=== PATIENT | female | born 1990 | race Two or more races ===

== ENCOUNTER 2018-11-11 17:09 | Emergency (ER) | payer OTHER ==
[~2018-11-11] VITALS: Ht 160 cm; Wt 68.2 kg
[2018-11-11 17:49] LABS: BASO # 0.1 10^3/uL (0.0-0.2); BASO % 0.6 % (0.0-1.0); EOS # 0.1 10^3/uL (0.0-0.50); EOS % 1.4 % (0.0-3.0); HEMATOCRIT 39.8 % (36.0-47.0); LYMPH # 2.2 10^3/uL (1.5-6.5); LYMPH % 27.8 % (24.0-44.0); MEAN CORPUSCULAR HEMOGLOBIN 30.6 pg (27.0-33.0); MEAN CORPUSCULAR HGB CONC 32.7 g/dl (32.0-36.5); MEAN CORPUSCULAR VOLUME 93.6 fl (80.0-96.0); MONO # 0.6 10^3/uL (0.0-0.8); MONO % 7.6 % (0.0-5.0); NEUTROPHILS # 4.9 10^3/uL (1.8-7.7); NEUTROPHILS % 62.3 % (36.0-66.0); PLATELET COUNT, AUTOMATED 201 10^3/uL (150-450); RED BLOOD COUNT 4.25 10^6/uL (4.00-5.40); WHITE BLOOD COUNT 7.9 10^3/uL (4.0-10.0)
[2018-11-11 18:19] LABS: ALBUMIN 4.1 GM/DL (3.2-5.2); ALT/SGPT 23 U/L (12-78); BILIRUBIN,DIRECT 0.2 MG/DL (0.0-0.2); BILIRUBIN,TOTAL 0.5 MG/DL (0.2-1.0); BLOOD UREA NITROGEN 13 MG/DL (7-18); CALCIUM LEVEL 9.4 MG/DL (8.5-10.1); CARBON DIOXIDE LEVEL 29 MEQ/L (21-32); CHLORIDE LEVEL 108 MEQ/L (98-107); CREATININE FOR GFR 0.79 MG/DL (0.55-1.30); GLOMERULAR FILTRATION RATE > 60.0 (>60); GLUCOSE, FASTING 83 MG/DL (70-100); LIPASE 78 U/L (73-393); POTASSIUM SERUM 4.5 MEQ/L (3.5-5.1); SODIUM LEVEL 139 MEQ/L (136-145); TOTAL PROTEIN 7.6 GM/DL (6.4-8.2)
[2018-11-11 20:18] LABS: HCG, SERUM QUALITATIVE NEGATIVE (NEGATIVE)
--- NOTE | 2018-11-11 22:15 | REPVR ---
EXAM: US Pelvis Complete, Transabdominal and US Pelvis, Transvaginal EXAM DATE/TIME: 11/11/2018 9:27 PM CLINICAL HISTORY: 27 years old, female; Pelvic pain; Additional info: Pelvic cramping/pain, l>r TECHNIQUE: Imaging protocol: Real-time transabdominal and transvaginal pelvic ultrasound (complete) with image documentation. Transvaginal imaging was used for better evaluation of the endometrium and adnexa. COMPARISON: No relevant prior studies available. FINDINGS: Uterus/cervix: The uterus measures 8.0 x 3.6 x 4.4 cm. Endometrial stripe measures 8.7 mm. No gross abnormalities are identified. Right adnexa: Right ovary measures 3.8 x 2.0 x 2.7 cm and demonstrates dopplerable blood flow. Left adnexa: Left ovary measures 3.3 x 2.1 x 2.3 cm and demonstrates dopplerable blood flow. Free fluid: Small amount of free fluid is seen in the cul-de-sac. Bladder: Underdistended on transabdominal imaging and therefore cannot be adequately assessed. IMPRESSION: No gross abnormalities as visualized. Small amount of free fluid in the cul-de-sac is nonspecific but may be physiologic. Electronically signed by: Angel Miguel On 11/11/2018 22:15:27 PM
[2018-11-11 22:37] LABS: CHLAMYDIA DNA AMPLIFICATION NEGATIVE (NEGATIVE); GC DNA AMPLIFICATION NEGATIVE (NEGATIVE)
[2018-11-11 22:55] VITALS: BP 122/60
== END 2018-11-11 22:58 | disposition home or self-care (01) ==
LOC: M ED 17:09
DX: R10.2 Pelvic and perineal pain (principal); Z86.19 Personal history of other infectious and parasitic diseases; Z82.5 Family history of asthma and other chronic lower respiratory diseases

== ENCOUNTER 2019-03-05 23:16 | Emergency (ER) | payer OTHER ==
[~2019-03-05] VITALS: Ht 160 cm; Wt 77.8 kg
[2019-03-05] MEDS ORDERED: ACET-683 PO (23:22)
[2019-03-05] MEDS ORDERED: ROBICAP2 PO (23:22)
[2019-03-06 00:48] LABS: BASO % 0.4 % (0.0-1.0); EOS % 2.2 % (0.0-3.0); HEMATOCRIT 31.3 % (36.0-47.0); HEMOGLOBIN 10.4 g/dl (12.0-15.5); LYMPH # 2.5 10^3/uL (1.5-5.0); LYMPH % 24.3 % (24.0-44.0); MEAN CORPUSCULAR HEMOGLOBIN 31.5 pg (27.0-33.0); MEAN CORPUSCULAR HGB CONC 33.2 g/dl (32.0-36.5); MEAN CORPUSCULAR VOLUME 94.8 fl (80.0-96.0); MONO % 7.2 % (0.0-5.0); NEUTROPHILS # 6.5 10^3/uL (1.5-8.5); NEUTROPHILS % 64.5 % (36.0-66.0); PLATELET COUNT, AUTOMATED 182 10^3/uL (150-450); WHITE BLOOD COUNT 10.1 10^3/uL (4.0-10.0)
[2019-03-06 00:49] LABS: EOS # 0.2 10^3/uL (0.0-0.5); MONO # 0.7 10^3/uL (0.0-0.8)
[2019-03-06 00:55] LABS: APPEARANCE, URINE HAZY (CLEAR); BACTERIA, URINE AUTO NEGATIVE (NEGATIVE); BILIRUBIN, URINE AUTO NEGATIVE (NEGATIVE); BLOOD, URINE BLOOD NEGATIVE (NEGATIVE); COLOR, URINE YELLOW (YELLOW); GLUCOSE, URINE (UA) AUTO NEGATIVE (NEGATIVE); KETONE, URINE AUTO NEGATIVE (NEGATIVE); LEUKOCYTE ESTERASE, URINE AUTO NEGATIVE (NEGATIVE); MUCUS, URINE SMALL (NEGATIVE); NITRITE, URINE AUTO NEGATIVE (NEGATIVE); PROTEIN, URINE AUTO NEGATIVE (NEGATIVE); RBC, URINE AUTO 2 /HPF (0-3); SQUAMOUS EPITHELIAL CELL UR AU 5 /HPF (0-6); UROBILINOGEN, URINE AUTO 0.2 mg/dL (0.0-2.0); WBC, URINE AUTO 1 /HPF (0-3)
[2019-03-06 01:03] LABS: ALBUMIN 2.9 GM/DL (3.2-5.2); ALT/SGPT 41 U/L (12-78); BILIRUBIN,DIRECT < 0.1 MG/DL (0.0-0.2); BILIRUBIN,TOTAL < 0.1 MG/DL (0.2-1.0); BLOOD UREA NITROGEN 8 MG/DL (7-18); CALCIUM LEVEL 8.3 MG/DL (8.5-10.1); CARBON DIOXIDE LEVEL 22 MEQ/L (21-32); CHLORIDE LEVEL 110 MEQ/L (98-107); CREATININE FOR GFR 0.49 MG/DL (0.55-1.30); GLOMERULAR FILTRATION RATE > 60.0 (>60); GLUCOSE, FASTING 101 MG/DL (70-100); POTASSIUM SERUM 3.5 MEQ/L (3.5-5.1); SODIUM LEVEL 140 MEQ/L (136-145); TOTAL PROTEIN 6.3 GM/DL (6.4-8.2)
--- NOTE | 2019-03-06 01:22 | REPVR ---
PROCEDURE INFORMATION: Exam: US Retroperitoneal Limited, Kidneys Exam date and time: 03/05/2019 12:38 AM Age: 28 years old Clinical indication: Abdominal pain; Flank; Right; ; Additional Info: right flank pain TECHNIQUE: Imaging protocol: Real-time ultrasound of the retroperitoneum with image documentation. Examination was focused on the kidneys. COMPARISON: No relevant prior studies available. FINDINGS: Right kidney: Right kidney measures 11.9 cm in length. No right hydronephrosis. No masses. Left kidney: Left kidney measures 11.2 cm in length. No left hydronephrosis. No masses. IMPRESSION: Unremarkable renal ultrasound. Electronically signed by: Dori Mtz On 03/06/2019 01:21:35 AM
--- NOTE | 2019-03-06 01:24 | REPVR ---
PROCEDURE INFORMATION: Exam: US , Limited Exam date and time: 03/05/2019 12:38 AM Age: 28 years old Clinical indication: Pain; Other: RT FLANK; Gestational age or LMP: 19; ; Additional Info: right flank pain TECHNIQUE: Imaging protocol: Real-time ultrasound of the maternal uterus with image documentation. Exam focused on the clinical indication. COMPARISON: US PELVIC NON-OB COMPLETE 11/11/2018 9:12 PM FINDINGS: GESTATION: Gestation: Single live intrauterine gestation. Heart rate: heart rate measures 150 bpm. Presentation: Transverse head to the maternal left position. Placenta: Placenta is anterior. No evidence for abruption. Amniotic fluid: Amniotic fluid is adequate. BIOMETRY: Estimated gestational age: Estimated gestational age was not measured. MATERNAL: Cervix: Cervix measures 4.6 cm in length. Cervix is closed. Intraperitoneal: No free fluid. IMPRESSION: 1. Single live intrauterine gestation. 2. Recommend routine follow-up full anatomical survey at 19-20 weeks gestational age. Electronically signed by: Dori Mtz On 03/06/2019 01:23:49 AM
[2019-03-06 01:56] VITALS: BP 116/56
== END 2019-03-06 02:30 | disposition home or self-care (01) ==
LOC: M ED 23:16
DX: O99.89 Other specified diseases and conditions complicating pregnancy, childbirth and the puerperium (principal); M54.6 Pain in thoracic spine; Z3A.00 Weeks of gestation of pregnancy not specified

== ENCOUNTER 2019-04-24 14:51 | Emergency (ER) | payer OTHER ==
[~2019-04-24] VITALS: Ht 160 cm; Wt 84.0 kg
[~2019-04-24 14:51] MED LIST: ACET-683 PO; ROBICAP2 PO
[2019-04-24] MEDS ORDERED: AMOX500C PO (17:42)
[2019-04-24] MEDS ORDERED: CETI10CA2 PO (17:42)
[2019-04-24 17:53] VITALS: BP 127/62
== END 2019-04-24 17:55 | disposition home or self-care (01) ==
LOC: M ED 14:51
DX: O99.512 Diseases of the respiratory system complicating pregnancy, second trimester (principal); Z3A.26 26 weeks gestation of pregnancy

== ENCOUNTER 2019-07-10 17:32 | Outpatient (CLI) | payer OTHER ==
[~2019-07-10] VITALS: Ht 160 cm; Wt 89.0 kg
[~2019-07-10 17:32] MED LIST changes: +AMOX500C PO; +CETI10CA2 PO
[2019-07-10 18:04] VITALS: BP 129/72
--- NOTE | 2019-07-10 18:24 | IPNPDOC ---
Text Note Date of Service The patient was seen on 07/10/19. NOTE patient is a 28 yo G1 @37wks gestation presents with concern for abdominal pain x 30 minutes. reports constant pain on left side with wave of wosening pain. denies LOF/VB. +FM. vitals: normal nad abd: gravid, soft, nt, cephalic le: no yolie/erythema/tenderness FHT: 135/mod angeli/pos accel/no decel toco: irregular ctx CE: c/l/h, mid, medium a/p patient @ 37+1wks, not in labor. discussed labor pain. return precautions given. f/u with regularly scheduled exam. Le, DO VS,Fishbone, I+O VS, Fishbone, I+O Vital Signs Date Time Temp Pulse Resp B/P (MAP) Pulse Ox O2 Delivery O2 Flow Rate FiO2 07/10/19 18:04 97.8 87 16 129/72 (91) PRESTON QUINTERO DO Jul 10, 2019 18:24
== END 2019-07-10 18:35 | disposition home or self-care (01) ==
LOC: M LDO 17:32
PROVIDERS: ATTEND Obstetrics & Gynecology
DX: O26.893 Other specified pregnancy related conditions, third trimester (principal); R10.30 Lower abdominal pain, unspecified; Z3A.37 37 weeks gestation of pregnancy
CPT/HCPCS: 59025; G0378; G0463

== ENCOUNTER 2019-07-31 00:21 | Inpatient (IN) | payer OTHER ==
[2019-07-31] VITALS (39 sets, daily range): BP systolic 90–133; BP diastolic 52–78
[~2019-07-31] VITALS: Ht 160 cm; Wt 90.4 kg
[2019-07-31] MEDS ORDERED: LACTATED RINGER'S 1000 ML IV ONE (03:15)
[2019-07-31 04:08] LABS: HEMATOCRIT 35.8 % (36.0-47.0); HEMOGLOBIN 11.9 g/dl (12.0-15.5); MEAN CORPUSCULAR HEMOGLOBIN 31.2 pg (27.0-33.0); MEAN CORPUSCULAR HGB CONC 33.2 g/dl (32.0-36.5); PLATELET COUNT, AUTOMATED 132 10^3/uL (150-450); RED BLOOD COUNT 3.81 10^6/uL (4.00-5.40); WHITE BLOOD COUNT 12.6 10^3/uL (4.0-10.0)
[2019-07-31] MEDS: LR 1,000 ML IV SCH ×3 (04:53→20:22)
[2019-07-31] MEDS ORDERED: FENTANYL 2MCG/ML ROPIVACAINE 0.2% IN 0.9% NACL 100ML IVBAG As Ordered ONE (05:05)
[2019-07-31] MEDS ORDERED: diphenhydrAMINE 50MG/ML VIAL (J1200) IV PRN ×2 (05:09→19:05)
[2019-07-31] MEDS ORDERED: ONDANSETRON 4MG/2ML VIAL IV PRN ×3 (05:09→20:15)
[2019-07-31] MEDS ORDERED: EPIDURAL COMMENT XX SCH (05:09)
[2019-07-31] MEDS ORDERED: NALOXONE INJ 0.4MG/1ML VIAL (J2310 PER 1MG) IV PRN ×3 (05:09→19:05)
[2019-07-31] MEDS ORDERED: EPIDURAL/PCA KEYS XX PRN (05:09)
[2019-07-31] MEDS ORDERED: LACTATED RINGER'S 1000 ML IV PRN (05:09)
[2019-07-31] MEDS ORDERED: REFRIGERATOR IV KEYS XX PRN (05:09)
[2019-07-31] MEDS: ePHEDrine SULFATE 25 MG/5 ML(5MG/ML) SYRINGE IV PRN ×3 (07:27→12:44)
[2019-07-31] MEDS: FENTANYL/ROPIVACAINE/NACL BAG 100 ML EPIDURAL SCH ×2 (07:46→14:32)
--- NOTE | 2019-07-31 09:22 | IPNPDOC ---
Obstetrical Progress Note Date of Service July 31, 2019 Subjective [place] of Care Received report from Dr. Avery during board sign out of Pamela, a 28yo at 40+1 weeks gestation, admitted to [facility] this morning for early labor. She was AROMd at 0443 and received an epidural at 0538. She denies feeling any pain and is very comfortable at this time. Her spouse is at the bedside at this time. She is GBS Negative; Blood Type is O Negative. complicated by anemia, overweight and excessive weight gain. Objective O: VSS, afebrile, normotensive. She did have periods of hypotension after epidural and received ephedrine x2. VE deferred at this time as her last exam was around 0730; was 4-5-C/-2 FHR 150s, minimal variability, no 15x15 accels, early decels. There have been some periods of moderate variability; few periods of absent variability that resolves within 60 seconds or less; intermittent late decelerations also noted. Pt has previously received an LR bolus and repositioned to which the fetus responds well. Will continue interventions as necessary. CTX by TOCO: q 2-4 minutes Vital Signs Date Time Temp Pulse Resp B/P (MAP) Pulse Ox O2 Delivery O2 Flow Rate FiO2 07/31/19 08:07 84 16 107/56 (73) 07/31/19 07:32 98.9 Assessment Heart Rate Tracing: Category II Sterile Vaginal Examination Postion/Presentation: Cephalic presentation Assessment and Plan Group B Streptococcus: Negative Anticipate: Vaginal Delivery Additional Comments A: 28yo at 40+1wks, labor, Category II FHT with interventions. P: CEFM x2 Close maternal/ monitoring resuscitative interventions as necessary to resolve Category II tracing Consult with OB as indicated Consider augmentation with pitocin if no progress at next exam Safe to proceed Anticipate DILIP GRANDE CNM July 31, 2019 09:22
[2019-07-31] MEDS ORDERED: OXYTOCIN DRIP 30 UNITS in IV 1 EA IV SCH ×2 (10:45→19:41)
--- NOTE | 2019-07-31 13:17 | IPNPDOC ---
Obstetrical Progress Note Date of Service July 31, 2019 Subjective Labor Progress Note Pamela is a 28yo at 40+4wks admitted this morning in early labor with AROM (x8 hours now), clear fluid. She is still very comfortable with epidural in place, intermittent rectal pressure. She has been repositioned throughout her admission, with and without the peanut ball; she did receive O2 from [id number], at which time the fetus responded with accels, but variability remained minimal. Because of her persistent Category II FHT with minimal variability and some periods that appeared to be absent, Internal monitors were placed (FSE and IUPC) for a more reliable tracing. Objective O: VSS, afebrile, normotensive FHR: 145, minimal variability (despite ongoing interventions), + accels, no decels noted (there have been intermittent lates (none noted over the past 30 minutes). CTX by IUPC: q 2-6 minutes; MVUs 120, not adequate. VE at 1205: 5.5/100/-2 head palpated to be at ROP with caput present. Vital Signs Date Time Temp Pulse Resp B/P (MAP) Pulse Ox O2 Delivery O2 Flow Rate FiO2 07/31/19 12:42 93 97/56 (70) 07/31/19 12:41 16 07/31/19 11:41 98.8 Assessment Heart Rate Tracing: Category II Sterile Vaginal Examination Cervical Position: Middle Postion/Presentation: Cephalic presentation Assessment and Plan Anticipate: Vaginal Delivery Additional Comments A: 28yo at 40+4wks with persistent category II FHT, entering into active labor. Interventions continuously ongoing. Patient status and tracing reviewed with Dr. Angel P: CEFM x2 Continue repositioning, to include hands/knees 500mL LR bolus Pitocin start when tracing is Category I Close maternal/ monitoring Safe to proceed with labor at this time Consult with OB as indicated Anticipate ; C/S if become appropriate DILIP RODRIGUEZ CNM July 31, 2019 13:17
[2019-07-31] MEDS ORDERED: LR 1,000 ML IV SCH ×2 (15:00→20:15)
[2019-07-31] MEDS ORDERED: ePHEDrine SULFATE 25 MG/5 ML(5MG/ML) SYRINGE IV ONE (15:00)
[2019-07-31] MEDS ORDERED: BICITRA 30ML SOLN UDC PO ONE (17:30)
[2019-07-31] MEDS ORDERED: ceFAZolin SOD 2 GM in IV 1 EA IV ONE (17:30)
[2019-07-31] MEDS ORDERED: ceFAZolin 2 GM/D5W 50 ML IV BAG (J0690 PER 500MG) As Ordered ONE (17:32)
[2019-07-31] MEDS ORDERED: BICITRA 30ML SOLN UDC As Ordered ONE (17:33)
--- NOTE | 2019-07-31 17:39 | IPNPDOC ---
Text Note Date of Service The patient was seen on 07/31/19. NOTE Intrapartum Note, decision for Pamela is a 28yo at 40w1d admitted early this morning for latent labor. She had AROM at 0443 and received an epidural at 0538. She had IUPC and FSE placed in the afternoon for slow progression. She was not initiated on pitocin for p ersistent Cat II FHRT. She is currently comfortable with epidural. She has been 6cm since at least noon today (by IWONA Finch's assessment). Vitals wnl, afebrile SCE: /-2 Cat II FHRT with +accels, minimal variability, occasional non-persistent late decels Espino: ctx q4-6min I discussed with Pamela and her that at this point, she has arrest of dilation with inability to augment in the setting of persistent Cat II FHRT and my recommendation is for PLTCS. The couple was given time to discuss between themselves and agree to proceed with PLTCS. Consent form for PLTCS and blood transfusion discussed to include all r/b/a and consent forms signed by patient and me. Bicitra Anceph 2g IV pre-op (since patient has known allergy- hives- to clarithromycin, will not given azithromycin) Anesthesia notified and nursing team aware, will proceed to OR when team is ready Dr. Iris Angel MD VS,Marko, I+O VS, Marko I+O Laboratory Tests 07/31/19 03:32 Vital Signs Date Time Temp Pulse Resp B/P (MAP) Pulse Ox O2 Delivery O2 Flow Rate FiO2 07/31/19 15:52 98.8 96 16 115/56 (75) Iris Angel MD July 31, 2019 17:39
[2019-07-31] MEDS ORDERED: LIDOCAINE 2% W/EPIN INJ 20ML **PRES FREE As Ordered ONE (17:53)
[2019-07-31] MEDS ORDERED: OXYTOCIN 30 UNITS IN 0.9% NaCl 500ML IV BAG (J2590) As Ordered ONE ×2 (17:55→19:33)
[2019-07-31] MEDS ORDERED: ONDANSETRON 4MG/2ML VIAL As Ordered ONE (18:34)
[2019-07-31] MEDS ORDERED: KETOROLAC 60 MG/2 ML VIAL As Ordered ONE (18:34)
[2019-07-31 18:36] LABS: CORD GAS ABE A -2.8; CORD GAS HCO3 A 26.1 MEQ/L; CORD GAS O2 SAT A 23.9 %; CORD GAS PCO2 A 62.2 mmHg; CORD GAS PH A 7.24 UNITS; CORD GAS PO2 A 16.5 mmHg; CORD GAS SBC A 20.4 MEQ/L
[2019-07-31 18:37] LABS: CORD GAS ABE V -4.1; CORD GAS HCO3 V 21.5 MEQ/L; CORD GAS O2 SAT V 70.4 %; CORD GAS PCO2 V 41.6 mmHg; CORD GAS PH V 7.332 UNITS; CORD GAS PO2 V 30.4 mmHg; CORD GAS SBC V 20.4 MEQ/L; CORD GAS TCO2 V 22.8 MEQ/L
[2019-07-31] MEDS ORDERED: fentaNYL 100 MCG/2 ML INJECTION (J3010) As Ordered ONE (18:51)
[2019-07-31] MEDS ORDERED: MORPHINE PRES-FREE INJ 10 MG/10 ML VIAL (J2274) As Ordered ONE (18:58)
[2019-07-31] MEDS ORDERED: NALBUPHINE HCL 10 MG/ML AMP (J2300) IV PRN (19:05)
[2019-07-31] MEDS ORDERED: METOCLOPRAMIDE INJ 10MG/2ML VIAL (J2765 PER 1) IV PRN ×2 (19:05→20:15)
--- NOTE | 2019-07-31 19:39 | DNPDOC ---
[facility] Delivery Note Delivery Note DATE OF DELIVERY: 31 Jul 2019 PREDELIVERY DIAGNOSIS: 40w1d gestation and labor Arrest of dilation at 6cm Inability to augment secondary to persistent Cat II FHRT POST DELIVERY DIAGNOSIS: Same as above Delivered PROCEDURE: primary low transverse section BRICK TENDER: Dr. Iris Angel MD ANESTHESIA: epidural ESTIMATED BLOOD LOSS: 700 mL. FINDINGS: 7 pound 3 ounce (3250g) male , Score 8/9, nuchal cord times 1 DELIVERY SUMMARY: Pamela is a 28yo [id number] s/p uncomplicated PLTCS at 40w1d on 31 Jul 2019 after presenting in early labor and arresting at 6cm with inability to augment secondary to persistent Cat II FHRT. Please see dictated operative report for further details. MD Jeanne Sorensen Katrina D MD July 31, 2019 19:39
[2019-07-31] MEDS ORDERED: MEASLES,MUMPS,RUBELLA VACCINE INJ (MMR-II) (90707) SC SCH (19:45)
[2019-07-31] MEDS ORDERED: PERCOCET 5MG/325MG TAB PO PRN ×2 (19:45→20:15)
[2019-07-31] MEDS ORDERED: RHOGAM 300 MCG (1500 IU) INJ (J2790) IM SCH (19:45)
[2019-07-31] MEDS ORDERED: fentaNYL 100 MCG/2 ML INJECTION (J3010) IV PRN (20:15)
[2019-07-31] MEDS: DOCUSATE SODIUM 100 MG CAP PO SCH (21:00)
--- NOTE | 2019-07-31 23:31 | HPE ---
DATE OF ADMISSION: 07/31/2019 A 28-year-old 1, last menstrual period (LMP) 10/23/2018, estimated date of confinement (EDC) 07/30/2019 at 40 and 1 week's of gestation, having contractions and some show. Risk factors: She is Rh negative and she has anemia. Labs are O negative, HIV negative, hepatitis negative, RPR negative, rubella immune. Varicella immune. Pap normal. Gonorrhea and chlamydia are negative. 1-hour glucose 115. GBS is negative. Blood pressure is 129/72, respirations 16, pulse 87, temperature is 97.8. On examination, she appears distressed, has a category one strip. Symphysis fundus height is 40, vertex presenting, posterior 2 cm, -3 station, 60%. There is some show present. Contractions are moderate intensity, but still considerably far apart. Our plan of management is to hydrate the patient, reassess her in 2 hours as to whether she gets to stay and continue labor here. Presently no risk factors to continue monitoring.
--- NOTE | 2019-07-31 23:42 | IPN ---
DATE: 07/31/2019 Reassessment. This lady was seen in triage as an outpatient, complaining of contractions and moderate show. She is at 40 and 1 weeks of gestation. She was -3, 60%, posterior. Cervix was soft. Category one strip after hydration. Reevaluation 2 hours later, cervix is anterior, she is a good 2 cm. She is about 80% effaced, -3 station, bulging membranes can be felt. She has a moderate amount of show. Contractions are 7 minutes apart, but the intensity for her is quite palpable, and she has been doing this for the last 24-48 hours. Her urine was 1.020, trace of leukocytes, trace of protein, 250, blood. Our plan of management is to hydrate her, offer her pain management and artificial rupture of membranes after pain management in place, and at the present time with a category one strip and normotensive it is safe to proceed.
[2019-08-01] VITALS (7 sets, daily range): BP systolic 95–121; BP diastolic 47–60
[2019-08-01] MEDS: KETOROLAC 30 MG/ML 1ML VIAL IV SCH ×3 (00:10→11:52)
[2019-08-01] MEDS: LR 1,000 ML IV SCH (03:03)
[2019-08-01 07:37] LABS: HEMOGLOBIN 7.8 g/dl (12.0-15.5); MEAN CORPUSCULAR HEMOGLOBIN 31.5 pg (27.0-33.0); MEAN CORPUSCULAR HGB CONC 32.5 g/dl (32.0-36.5); MEAN CORPUSCULAR VOLUME 96.8 fl (80.0-96.0); RED BLOOD COUNT 2.48 10^6/uL (4.00-5.40); WHITE BLOOD COUNT 10.9 10^3/uL (4.0-10.0)
[2019-08-01 07:38] LABS: PLATELET COUNT, AUTOMATED 97 10^3/uL (150-450)
--- NOTE | 2019-08-01 08:56 | IPNPDOC ---
Progress Note Date of Service: August 01, 2019 Day#: 1 Progress Note PPD 1 SUBJECT: Pamela is a 28yo [id number] s/p uncomplicated PLTCS at 40w1d on 31 Jul 2019 after presenting in early labor and arresting at 6cm with inability to augment secondary to persistent Cat II FHRT, doing well day # 1. She has been ambulating, thompson removed recently and has not voided yet. Drinking ple nty of fluids, has not yet tried food but has an appetite. Breast feeding without issue. Reports lochia is like a normal period. Pain well controlled with toradol/percocet. No f/c/n/v/CP/SOB. OBJECTIVE: VITAL SIGNS: Within normal limits, afebrile. Alert and oriented times three. Abdomen: Fundus firm at U-2. Soft, appropriately tender to palpation without rebound/guarding. Pfannensteil incision covered by dry clean dressing. Extremities: no pain with palpation of calves Labs: pre-op H/H: 11.9/35.8 post-op H/H: 7.8/24 ASSESSMENT: Pamela is a 28yo [id number] s/p uncomplicated PLTCS at 40w1d on 31 Jul 2019 after presenting in early labor and arresting at 6cm with inability to augment secondary to persistent Cat II FHRT, doing well day # 1. Vitals within normal limits, afebrile, hemodynamically stable with no evidence of infection. PLAN: 1. Routine /post-op care 2. Toradol then Motrin for pain as well as prn percocet. 3. Encourage breast feeding and ambulation and use of IS 4. Due to void 4 hours after thompson removal 5. Regular diet 6. Ok to shower tonight and remove outer bandage, keep steri strips in place for [address] Iris Angel MD VS, I&O, 24H, [facility] Vital Signs/I&O Vital Signs Date Time Temp Pulse Resp B/P (MAP) Pulse Ox O2 Delivery O2 Flow Rate FiO2 08/01/19 07:14 100.0 102 18 121/60 (80) 98 Room Air I&O- Last 24 Hours up to 6 AM 08/01/19 06:00 Intake Total 4542 ml Output Total 2025 ml Balance 2517 ml Laboratory Data 24H LABS Laboratory Tests 2 07/31/19 18:28: Cord Arterial Blood pH 7.240, Cord Arterial Blood PCO2 62.2, Cord Arterial Blood PO2 16.5, Cord Arterial Blood HCO3 26.1, Cord Arterial Blood Total CO2 28.0, Cord Arterial Blood Base Excess -2.8, Cord Arterial Base Excess (Standard 20.4, Cord Arterial Bld Oxygen Saturation 23.9, Cord Venous Blood pH 7.332, Cord Sohan ous Blood PCO2 41.6, Cord Venous Blood PO2 30.4, Cord Venous Blood HCO3 21.5, Cord Venous Blood Total CO2 22.8, Cord Venous Base Excess (Actual) -4.1, Cord Venous Base Excess (Standard) 20.4, Cord Venous Blood Oxygen Saturation 70.4 08/01/19 07:01: Nucleated Red Blood Cells % (auto) 0.0, Immature Platelet Fraction 6.4 CBC/BMP Laboratory Tests 08/01/19 07:01 Iris Angel MD August 01, 2019 08:56
[2019-08-01] MEDS: PRENATAL VITAMINS CHEWABLE TABLET PO SCH (09:18)
[2019-08-01] MEDS: DOCUSATE SODIUM 100 MG CAP PO SCH ×2 (09:18→20:18)
--- NOTE | 2019-08-01 09:55 | IPN ---
DATE: 08/01/2019 This patient requested circumcision of her male . After discussing risks and benefits of circumcision, medical and nonmedical indications, penile block and aftercare, expressed understanding of penile block aftercare and bleeding. Signed the consent form. All questions were answered. 20-minute discussion. We await clearance by the hot repairman.
[2019-08-01] MEDS: IBUPROFEN 800 MG TAB PO SCH (20:18)
[2019-08-01] MEDS: PERCOCET 5MG/325MG TAB PO PRN (22:07)
[2019-08-02 02:00] VITALS: BP 123/58
[2019-08-02] MEDS: IBUPROFEN 800 MG TAB PO SCH ×2 (04:13→12:00)
[2019-08-02 06:00] VITALS: BP 110/59
[2019-08-02] MEDS ORDERED: IBUP80TA PO (07:31)
[2019-08-02] MEDS ORDERED: DOCU100C16 PO (07:31)
[2019-08-02] MEDS ORDERED: PERCOCET PO (07:31)
[2019-08-02] MEDS ORDERED: PRENCHW PO (07:31)
[2019-08-02] MEDS: DOCUSATE SODIUM 100 MG CAP PO SCH (08:21)
[2019-08-02] MEDS: PRENATAL VITAMINS CHEWABLE TABLET PO SCH (08:21)
[2019-08-02] MEDS: PERCOCET 5MG/325MG TAB PO PRN (08:22)
--- NOTE | 2019-08-03 18:14 | DSES ---
DATE OF ADMISSION: 07/31/2019 DATE OF DISCHARGE: 08/02/2019 This lady is a 28-year-old 1, now para 1, admitted in labor with contractions at 40 and one weeks of gestation. She had a primary section because of arrest of dilatation of a male infant, 7 pounds, 3 ounces, 3250 grams, scores of 8 and 9 at one and five minutes respectively. Arterial pH 7.24, base excess -2.8, venous pH 7.33, base excess -4.1. Her admitting hemoglobin was 11.9, hematocrit 35.8 and platelets were 132. Her discharge hemoglobin 7.8, hematocrit 24.0, and platelets are 97. She is asymptomatic. VITAL SIGNS: On discharge today, blood pressure is 110/59, respirations 17, pulse 86 and temperature is 98.3. We discussed phlebitis, cystitis, mastitis, endometritis and cellulitis, diet, exercise, pain management, perineal, breast and wound care. On examination, she is normocephalic, atraumatic. Neck: Full range of motion. Pupils equal and reactive to light. Distal pulses are symmetric. No evidence of deep vein thrombosis (DVT), pulmonary embolism (PE) or superficial phlebitis. Chest is clear bilaterally to bases. No wheezes or rhonchi. No costovertebral angle (CVA) tenderness. Abdomen is soft. Four quadrant bowel sounds are noted. Uterus is 2 below. Lochia is moderate. Incision is clean and dry. No rashes, lesions or pruritus. No arthralgia or myalgia. No complaint of joint pain. No complaint of cough, wheeze, shortness of breath or dyspnea on exertion. No nausea, vomiting, diarrhea or constipation. No urgency or frequency. In summary, we have a term gestation, delivered by primary section, a live male infant. Plans are to pickup her medications at [facility], two-week incision check either virtual or an actual visit, and a six-week check. At which time, control will be discussed. In summary, term gestation, live male , discharged, improved. All questions were answered. A 30-minute discussion.
--- NOTE | 2019-08-05 12:38 | RO ---
DATE OF OPERATION: 07/31/2019 STAFF SURGEON: Iris Angel MD SOFT TOP INSTALLER: CLINICAL SERVICE: Obstetrics. INDICATION FOR OPERATION: Pamela is a 28-year-old, G1, now P1-0-0-1, who was admitted at 40 weeks 1 day in latent labor. She progressed with rupture of membranes to the point of 6 cm but progressed no further over greater than 5 hours, and she had an inability to augment related to persistent category II heart rate tracing. PREOPERATIVE DIAGNOSES: 40-week 1 day, labor, arrest of dilation with inability to augment secondary to persistent category II heart rate tracing. POSTOPERATIVE DIAGNOSES: 40-week 1 day, labor, arrest of dilation with inability to augment secondary to persistent category II heart rate tracing. MATERIAL FORWARDED TO THE LABORATORY FOR EXAMINATION: Cord gases, pH arterial 7.24, base excess negative 2.8, pH venous 7.332, base excess negative 4.1. DESCRIPTION OF FINDINGS: Male in cephalic presentation, scores 8 and 9, 7 pounds 3 ounces or 3250 grams, normal-appearing ovaries, fallopian tubes, and uterus. INFECTION CLASSIFICATION: II. ESTIMATED BLOOD LOSS: 700 mL. INTRAVENOUS (IV) FLUIDS: 2100 mL lactated Ringer. URINE OUTPUT: 200 mL. OPERATION PERFORMED: Primary low transverse section. DESCRIPTION OF OPERATION: After obtaining informed consent, the patient was taken to the operating room. Doptones in the operating room (OR) were 160s. Nguyen catheter and bilateral sequential compression devices were already in place secondary to the fact that she had an epidural. She was prepped and draped in normal sterile fashion in the dorsal supine position with a left lateral tilt. Time-out was performed to confirm patient name, date of , procedure, and indication. The surgical team and nursing team were in agreement with anesthesia. Epidural anesthesia was found to be adequate. Using an Allis clamp, a Pfannenstiel skin incision was made with a scalpel and carried through to the underlying layer of fascia. Notably, she received 2 grams of Ancef prophylactically IV. The fascia was incised in the midline, and the incision was extended laterally with Morin scissors. Superior and inferior aspects of the fascial incision were grasped with Kye clamps, elevated, and the underlying rectus muscles were dissected off bluntly and sharply. Peritoneum was entered digitally. The rectus muscles were in the midline. Peritoneal incision was extended superiorly and inferiorly with good visualization of the bladder. Bladder blade was inserted, and vesicouterine peritoneum was identified, grasped with pickups, and entered sharply with Metzenbaum scissors. The incision was extended laterally, and the bladder flap was created digitally. Bladder blade was then reinserted, and the lower uterine segment was scored in a transverse fashion with a scalpel. The uterus was entered bluntly, and the incision was extended with traction. Bladder blade was removed, and the infant's head was elevated to the level of the incision. There was one nuchal cord that was reduced at the time of delivery. Fundal pressure was applied. Head was delivered atraumatically in the occipitoanterior (OA) position. Anterior shoulder, posterior shoulder, and corpus were delivered without difficulty. Nose and mouth of the infant were suctioned with bulb suction. The cord was clamped times two and cut. Infant was handed off to the awaiting nursing team. Cord gases were obtained, as well as for maternal blood type of O negative. Placenta was removed with uterine massage and traction on the cord, and the uterus was exteriorized and cleared of all clot and debris. Uterine incision was repaired with 0 Vicryl suture in a running locking fashion. A second layer 0 Monocryl was used to close the hysterotomy incision in imbricating fashion. Uterine incision was inspected, and hemostasis was noted. Posterior cul-de-sac was irrigated and uterus returned to the abdomen. Gutters were cleared of all clot and irrigated with hemostasis noted. Peritoneum was closed using 3-0 Vicryl suture in a running fashion. Rectus muscles were observed and had no bleeding. Fascia was reapproximated using 0 Vicryl suture in a running fashion. Subcutaneous tissue was copiously irrigated. Cornell fascia was reapproximated using 3-0 Vicryl suture in a running fashion. Skin edges were reapproximated using three inverted interrupted stitches using 3-0 Vicryl suture followed by a running subcuticular stitch using 4-0 Monocryl suture. The incision was cleaned with a wet lap and dried with a dry lap. Steri-Strips were applied in the usual fashion perpendicular to the Pfannenstiel incision. Two strips of Telfa were layered on top of the Steri-Strips followed by a dry sterile towel. Surgical drapes were removed. Sterile towel was removed. Pressure dressing was applied over the entire surgical incision. Vagina was cleared of all blood clot without active bleeding noted. Fundus was firm at umbilicus. All counts were correct times two. The procedure was without complication. The patient tolerated the procedure well. She was taken to the recovery room on labor and delivery in stable condition.
== END 2019-08-02 13:35 | disposition home or self-care (01) | DRG 773 ==
LOC: M LDO 00:21 → M LDI 02:59 → M OBS 21:10
PROVIDERS: ADMIT Obstetrics & Gynecology; ATTEND Obstetrics & Gynecology
PROC: 10907ZC Drainage of Amniotic Fluid, Therapeutic from Products of Conception, Via Natural or Artificial Opening (ICD-10-PCS; 2019-07-31)
PROC: 10D00Z1 Extraction of Products of Conception, Low, Open Approach (ICD-10-PCS; principal; 2019-07-31 18:21)
DX: O76 Abnormality in fetal heart rate and rhythm complicating labor and delivery (principal); Z37.0 Single live birth; O48.0 Post-term pregnancy; I95.9 Hypotension, unspecified; Z3A.40 40 weeks gestation of pregnancy; D64.9 Anemia, unspecified; O99.02 Anemia complicating childbirth; R63.5 Abnormal weight gain; O26.00 Excessive weight gain in pregnancy, unspecified trimester